=== PATIENT | female | born 1990 | race Caucasian/White ===

== ENCOUNTER 2018-09-04 13:43 | Inpatient (IN) | payer MEDICAID ==
[~2018-09-04] VITALS: Ht 162.6 cm; Wt 52.6 kg
--- NOTE | 2018-09-04 13:52 | NUR ---
aaox3, bibra c/o seizure, patient states that her last seizure was 4 months ago. blood stains noted on the face and hair. rr is even and unlabored with nad noted. skin is warm and dry. awaiting md for eval.
--- NOTE | 2018-09-04 13:54 | NUR ---
Patient placed on SI precaution.
[2018-09-04] MEDS ORDERED: PARO10TA86 PO (13:56)
[2018-09-04] MEDS ORDERED: TRAZ-214 PO (13:56)
[2018-09-04] MEDS ORDERED: IV NS 0.9% 1,000 ML BAG IV ONE (14:30)
[2018-09-04 14:43] LABS: BASOPHILS % (AUTO) 0.4 % (0.0-2.0); EOSINOPHILS % (AUTO) 0.1 % (0.0-6.0); HEMATOCRIT 40 % (33-45); HEMOGLOBIN 13.7 g/dL (11.5-14.8); LYMPHOCYTES # (AUTO) 0.3 /CMM (0.8-4.8); LYMPHOCYTES % (AUTO) 7.9 % (20.0-44.0); MEAN CORPUSCULAR HGB CONC 34 g/dl (31.0-36.0); MEAN CORPUSCULAR VOLUME 110 fL (82-100); MONOCYTES # (AUTO) 0.4 /CMM (0.1-1.30); MONOCYTES % (AUTO) 10.8 % (2.0-12.0); NEUTROPHILS # (AUTO) 3.1 /CMM (1.8-8.9); NEUTROPHILS % (AUTO) 80.8 % (43.0-81.0); PLATELET COUNT (AUTO) 145 /CMM (150-450); RED BLOOD CELL COUNT(AUTO) 3.67 MIL/uL (4.0-5.2); WHITE BLOOD COUNT (AUTO) 3.9 K/uL (4.3-11.0)
[2018-09-04 14:52] LABS: CALCIUM, SERUM 10.1 mg/dL (8.5-10.1); CREATININE 0.6 mg/dL (0.6-1.3); POTASSIUM 3.2 mmol/L (3.5-5.1)
[2018-09-04 14:59] LABS: ALBUMIN 4.9 g/dL (3.4-5.0); BILIRUBIN,DIRECT 0.3 mg/dL (0.0-0.2); BILIRUBIN,TOTAL 0.8 mg/dL (0.2-1.0); TOTAL PROTEIN, SERUM 8.8 g/dL (6.4-8.2)
[2018-09-04] MEDS ORDERED: LORAZEPAM 1 MG TABLET PO ONE (15:00)
[2018-09-04] MEDS ORDERED: LEVETIRACETAM (500MG) 500 MG in IV NS 0.9% 100 ML IV SCH (15:00)
[2018-09-04] MEDS ORDERED: LORAZEPAM 1 MG TABLET ONE (15:07)
[2018-09-04] MEDS ORDERED: LORAZEPAM INJ 2 MG/ML VIAL ONE (15:17)
--- NOTE | 2018-09-04 15:21 | NUR ---
Patient is actively having a seizure, Placed on seizure precaution, Dr Matthews made aware, verbally ordered 2mg ativan ivp.
[2018-09-04] MEDS ORDERED: LORAZEPAM INJ 2 MG/ML VIAL IV ONE (15:30)
--- NOTE | 2018-09-04 15:36 | NUR ---
Patient transported for CT via gurney.
--- NOTE | 2018-09-04 15:46 | NUR ---
Patient is back from CT in stable condition.
[2018-09-04] MEDS ORDERED: LEVE250T2 PO (16:19)
--- NOTE | 2018-09-04 16:39 | NUR ---
Report given to RIVERA Mccullough for [facility] Tele 105
[2018-09-04] MEDS ORDERED: Z GUARD REMEDY 2 OZ OINT TP PRN (17:00)
[2018-09-04] MEDS ORDERED: ONDANSETRON HCL/PF 4 MG/2 ML VIAL IVP PRN (17:00)
[2018-09-04] MEDS ORDERED: MAGNESIUM HYDROXIDE 30 ML UDC PO PRN (17:00)
[2018-09-04] MEDS ORDERED: LORAZEPAM INJ 2 MG/ML VIAL IV PRN (17:00)
[2018-09-04] MEDS ORDERED: MAG HYDROX/AL HYDROX/SIMETH 30 ML UDC PO PRN (17:00)
[2018-09-04] MEDS ORDERED: ACETAMINOPHEN 325 MG TABLET PO PRN (17:00)
[2018-09-04] MEDS ORDERED: ZOLPIDEM TARTRATE 5 MG TABLET PO PRN (17:00)
--- NOTE | 2018-09-04 17:00 | NUR ---
received pt in stable condition. vs are stable.Skin checked and intact except scratches on the face and chin ( bruises around both eyes). pt refused to take of picture of face. IV line to the left arm g20 , iv fluid running at 100 ml/hr. will f/u with admitting orders.
[2018-09-04] MEDS ORDERED: THIAMINE IV STA (17:28)
[2018-09-04] MEDS ORDERED: D5W IV STA (17:28)
[2018-09-04] MEDS: FOLIC ACID 1 MG TABLET PO SCH (17:57)
[2018-09-04] MEDS: IV NS 0.9% 1,000 ML IV PRN (18:05)
--- NOTE | 2018-09-04 19:30 | NUR ---
DAIRY PROCESSING EQUIPMENT OPERATOR NOTE RECEIVED PT A/O X3 AND ABLE TO MAKE NEEDS KNOWN. ON ROOM AIR AND BREATHING REGULAR AND UNLABORED. NOTED WITH FACIAL BRUISING D/T SEIZURE ACTIVITY PRIOR TO HOSPITAL ADMISSION. C/O SLIGHT PAIN BUT TOLERABLE. IVF INFUSING. CALL LIGHT WITHIN REACH. WILL MONITOR.
[2018-09-04 20:00] VITALS: BP 128/86
[2018-09-04] MEDS: LEVETIRACETAM (250 MG) 250 MG TABLET PO SCH (20:21)
[2018-09-04] MEDS ORDERED: diphenhydrAMINE HCL 25 MG CAPSULE PO ONE (22:30)
--- NOTE | 2018-09-04 22:30 | NUR ---
MOR RN NOTE PT C/O ITCHING ALL OVER. DENIES REACTION TO MEDICATION GIVEN KEPPRA. PT STATES SHE TAKES KEPPRA AT HOME. STATES SHE HAS EPISODES OF ITCHING ALL THE TIME. SPOKE WITH EMPLOYEE WELLNESS/FITNESS COORDINATOR DR. KOENIG WITH ORDERS FOR BENADRYL 25MG PO X1 NOW AND CONTINUE TO MONITOR. ORDERS NOTED AND CARRIED OUT.
[2018-09-05] VITALS: BP 115/77
[2018-09-05 04:00] VITALS: BP 121/72
[2018-09-05] MEDS: IV NS 0.9% 1,000 ML IV PRN (04:25)
[2018-09-05 06:37] LABS: CALCIUM, SERUM 8.8 mg/dL (8.5-10.1); CREATININE 0.7 mg/dL (0.6-1.3); MAGNESIUM 1.8 mg/dL (1.8-2.4); PHOSPHORUS 3.6 mg/dL (2.5-4.9); POTASSIUM 3.2 mmol/L (3.5-5.1)
[2018-09-05 07:16] LABS: BASOPHILS # (AUTO) 0.1 /CMM (0.0-0.2); BASOPHILS % (AUTO) 1.3 % (0.0-2.0); EOSINOPHILS % (AUTO) 1.1 % (0.0-6.0); HEMATOCRIT 36 % (33-45); HEMOGLOBIN 12.2 g/dL (11.5-14.8); LYMPHOCYTES # (AUTO) 0.6 /CMM (0.8-4.8); LYMPHOCYTES % (AUTO) 15.2 % (20.0-44.0); MEAN CORPUSCULAR HGB CONC 34 g/dl (31.0-36.0); MEAN CORPUSCULAR VOLUME 112 fL (82-100); MONOCYTES # (AUTO) 0.6 /CMM (0.1-1.30); MONOCYTES % (AUTO) 15.3 % (2.0-12.0); NEUTROPHILS # (AUTO) 2.7 /CMM (1.8-8.9); NEUTROPHILS % (AUTO) 67.1 % (43.0-81.0); PLATELET COUNT (AUTO) 112 /CMM (150-450); RED BLOOD CELL COUNT(AUTO) 3.22 MIL/uL (4.0-5.2)
[2018-09-05 08:00] VITALS: BP 119/81
[2018-09-05] MEDS: LEVETIRACETAM (250 MG) 250 MG TABLET PO SCH (08:20)
[2018-09-05] MEDS: FOLIC ACID 1 MG TABLET PO SCH (08:20)
[2018-09-05] MEDS ORDERED: THIAMINE HCL 100 MG TABLET PO SCH (09:00)
[2018-09-05] MEDS ORDERED: POTASSIUM CHLORIDE 20 MEQ TAB.PRT.SR PO SCH (11:30)
--- NOTE | 2018-09-05 11:45 | NUR ---
RN NOTE PATIENT DISCHARGED. PAPERWORK COMPLETED AND SIGNED. PRESCRIPTION GIVEN TO PATIENT. ID AND IV SITE REMOVED.
== END 2018-09-05 11:55 | disposition home or self-care (01) | DRG 53 ==
LOC: ER 13:45 → TELE1 16:29
PROVIDERS: ADMIT Nurse Practitioner Acute Care; ATTEND Nurse Practitioner Acute Care
DX: G40.909 Epilepsy, unspecified, not intractable, without status epilepticus (principal); F50.9 Eating disorder, unspecified; D75.89 Other specified diseases of blood and blood-forming organs; E86.0 Dehydration; D72.819 Decreased white blood cell count, unspecified; S09.93XA Unspecified injury of face, initial encounter; E87.6 Hypokalemia; F10.10 Alcohol abuse, uncomplicated; Z79.899 Other long term (current) drug therapy; W07.XXXA Fall from chair, initial encounter; Y92.89 Other specified places as the place of occurrence of the external cause; Z91.19 Patient's noncompliance with other medical treatment and regimen; F17.200 Nicotine dependence, unspecified, uncomplicated; Z59.7 Insufficient social insurance and welfare support; Z86.59 Personal history of other mental and behavioral disorders; Z91.14 Patient's other noncompliance with medication regimen
CPT/HCPCS: 36415; 70450-TC; 80048-TC; 80076-TC; 80177; 80305; 83735-TC; 84100-TC; 84702-TC; 85025-TC; 87081-TC; A6403; G0378; G0480; J1953; J2060; J3411; J7030; J7060; Q0163